=== PATIENT | male | born 1945 | race Caucasian/White ===

== ENCOUNTER 2017-05-02 11:18 | Inpatient (IN) ==
[2017-05-02] MEDS ORDERED: methylPREDNISolone SOD SUC 125 MG/2 ML VIAL IV STA (11:41)
[2017-05-02] MEDS ORDERED: AZITHROMYCIN INJ 500 MG in SODIUM CHLORIDE 0.9% 250 ML IV STA (11:41)
[2017-05-02] MEDS ORDERED: ONDANSETRON 4 MG/2 ML VIAL IV STA (11:41)
[2017-05-02] MEDS ORDERED: ALBUTEROL NEB SOLN 5 MG/ML 20 ML/BOTTLE RESP TX SCH (12:00)
[2017-05-02] MEDS ORDERED: AZITHROMYCIN 500 MG VIAL IV ONE (12:03)
[2017-05-02] MEDS ORDERED: ONDANSETRON 4 MG/2 ML VIAL ONE (12:03)
[2017-05-02] MEDS ORDERED: methylPREDNISolone SOD SUC 125 MG/2 ML VIAL ONE (12:03)
[2017-05-02 12:09] LABS: Basophils % 0.2 % (0.0-0.8); Eosinophils # 0.1 10*3/uL (0.0-0.87); Eosinophils % 2.1 % (0.00-10.9); Hematocrit 40.4 VOL% (42.0-52.0); Hemoglobin 13.3 GM/DL (14.0-18.0); Immature Granulocytes % 0.6 %; Immature Granulocytes Absolute 0.03 #; Lymphocytes # 1.1 10*3/uL (1.4-4.0); Lymphocytes % 20.8 % (21.2-54.2); Mean Corpuscular HGB Conc 32.9 GM/DL (32-36); Mean Corpuscular Hemoglobin 30 PG (27-34); Mean Platelet Volume 10.7 FL (9.6-12.0); Monocytes # 0.4 10*3/uL (0.11-0.8); Monocytes % 6.6 % (1.7-12.7); Neutrophils # 3.7 10*3/uL (1.4-7.4); Neutrophils % 69.7 % (38.7-73.9); Platelet Count 125 T/CUMM (130-400); Red Blood Count 4.44 MC/CUMM (3.8-5.5); Red Cell Distribution Width 13.4 % (9.3-17.3); White Blood Count 5.3 T/CUMM (4-12)
[2017-05-02 12:24] LABS: PT Patient Result 10.5 SECS; Partial Thromboplastin Time 28.6 SECS (0-40)
[2017-05-02 12:34] LABS: Alanine Aminotransferase 12 U/L (16-61); Albumin 3.1 G/DL (3.4-5.0); Alkaline Phosphatase 92 U/L (45-117); Aspartate Amino Transferase 14 U/L (0-37); Blood Urea Nitrogen 23 MG/DL (7-18); Calcium 8.7 MG/DL (8.5-10.1); Glucose 355 MG/DL (74-106); Osmolality,Calculated 287.1 MOS/KG (273-304); Potassium 4.9 MMOL/L (3.5-5.1); Sodium 135 MMOL/L (136-145); Total Protein 7.4 G/DL (6.4-8.3); Troponin I Only < 0.015 NG/ML (0.00-0.045)
[2017-05-02 13:29] LABS: Apearance,Urine CLEAR (Clear); Bilirubin,Urine Negative (Negative); Blood, Urine Negative (Negative); Glucose,Urine (UA) >=500 mg/dL (Negative); Ketones,Urine Negative (Negative); Mucus,Urine Occasional /LPF (Occasional); Nitrite,Urine Negative (Negative); Protein,Urine Negative; RBC,Urine <1 /HPF (0-4); Urine Color Yellow (Yellow); Urine Specific Gravity 1.018 (1.001-1.035); Urine Urobilinogen < 2.0 EU/DL (0.2-1.0); WBC,Urine 1 /HPF (0-6)
[2017-05-02] MEDS ORDERED: ONDANSETRON 4 MG/2 ML VIAL IV PRN (14:35)
[2017-05-02] MEDS ORDERED: GLUCAGON 1 MG VIAL IM PRN (14:35)
[2017-05-02] MEDS ORDERED: MORPHINE 2 MG/1 ML SYRINGE IV PRN (14:35)
[2017-05-02] MEDS ORDERED: ACETAMINOPHEN 325 MG TABLET PO PRN (14:35)
[2017-05-02] MEDS ORDERED: DEXTROSE 50% 25 GM/50 ML VIAL IV PRN (14:35)
[2017-05-02] MEDS ORDERED: ENOXAPARIN 40 MG/0.4 ML SYRINGE SUBCUT SCH (16:30)
[2017-05-02] MEDS: INSULIN LISPRO 100 UNIT/ML SUBCUT SCH ×2 (17:27→20:40)
[2017-05-02] MEDS: SODIUM CHLORIDE 0.9% 1,000 ML IV SCH (17:27)
[2017-05-02] MEDS: PIPERACILLIN/TAZOBACTAM 3,375 MG in SODIUM CHLORIDE 0.9% 100 ML IV SCH (18:11)
[2017-05-02] MEDS: ALBUTEROL/IPRATROPIUM 3 ML NEB RESP TX SCH (19:03)
[2017-05-02] MEDS: guaiFENesin/DM ER 600-30 MG TABLET PO SCH (20:39)
[2017-05-02] MEDS ORDERED: BENAZEPRIL 40 MG TABLET PO SCH (21:00)
[2017-05-02] MEDS ORDERED: PRAVASTATIN 40 MG TABLET PO SCH (21:00)
[2017-05-02] MEDS ORDERED: amLODIPine 5 MG TABLET PO SCH (21:00)
[2017-05-03] MEDS ORDERED: MELATONIN 3 MG TABLET PO PRN (00:19)
[2017-05-03] MEDS: PIPERACILLIN/TAZOBACTAM 3,375 MG in SODIUM CHLORIDE 0.9% 100 ML IV SCH ×2 (00:43→09:39)
[2017-05-03] MEDS: ALBUTEROL/IPRATROPIUM 3 ML NEB RESP TX SCH ×2 (01:02→07:43)
[2017-05-03 05:39] LABS: Hematocrit 35.4 VOL% (42.0-52.0); Hemoglobin 11.5 GM/DL (14.0-18.0); Immature Granulocytes % 0.6 %; Immature Granulocytes Absolute 0.04 #; Lymphocytes % 14.7 % (21.2-54.2); Mean Corpuscular HGB Conc 32.5 GM/DL (32-36); Mean Corpuscular Hemoglobin 29 PG (27-34); Mean Corpuscular Volume 90.3 FL (87-102); Mean Platelet Volume 11.1 FL (9.6-12.0); Monocytes # 0.4 10*3/uL (0.11-0.8); Monocytes % 5.3 % (1.7-12.7); Neutrophils # 5.5 10*3/uL (1.4-7.4); Neutrophils % 79.4 % (38.7-73.9); Platelet Count 144 T/CUMM (130-400); Red Blood Count 3.92 MC/CUMM (3.8-5.5); Red Cell Distribution Width 13.2 % (9.3-17.3); White Blood Count 6.9 T/CUMM (4-12)
[2017-05-03 06:08] LABS: Calcium 8.1 MG/DL (8.5-10.1); Osmolality,Calculated 294.5 MOS/KG (273-304); Potassium 4.9 MMOL/L (3.5-5.1); Risk Ratio 2.68; VLDL CHOLESTEROL 18.4 MG/DL
[2017-05-03] MEDS ORDERED: GLIMEPIRIDE 4 MG TABLET PO SCH (08:00)
[2017-05-03] MEDS: SODIUM CHLORIDE 0.9% 1,000 ML IV SCH ×2 (08:18→09:39)
[2017-05-03] MEDS ORDERED: PANTOPRAZOLE 40 MG TABLET PO SCH (09:00)
[2017-05-03] MEDS ORDERED: MONTELUKAST 10 MG TABLET PO SCH (09:00)
[2017-05-03] MEDS ORDERED: LOSARTAN 50 MG TABLET PO SCH (09:00)
[2017-05-03] MEDS: guaiFENesin/DM ER 600-30 MG TABLET PO SCH (09:09)
[2017-05-03] MEDS: INSULIN LISPRO 100 UNIT/ML SUBCUT SCH (09:09)
[2017-05-03 09:47] VITALS: BP 153/67
== END 2017-05-03 11:30 | disposition home or self-care (01) | DRG 192 ==
LOC: N.ED 11:18 → N.EDINP 15:07 → N.4E 16:39
PROVIDERS: ADMIT Internal Medicine Infectious Disease; ATTEND Internal Medicine Infectious Disease

== ENCOUNTER 2018-04-19 11:39 | Inpatient (IN) ==
[2018-04-19] MEDS ORDERED: MORPHINE 4 MG/1 ML VIAL IV STA (13:14)
[2018-04-19] MEDS ORDERED: ONDANSETRON 4 MG/2 ML VIAL IV STA (13:14)
[2018-04-19] MEDS ORDERED: NITROGLYCERIN 2% OINT 1 INCH/GM PACK TOP STA (13:14)
[2018-04-19] MEDS ORDERED: ASPIRIN 325 MG TABLET PO STA (13:14)
[2018-04-19] MEDS ORDERED: ALUM/MAG/SIMETH/LIDO VISC 1:1 30 ML BOTTLE PO STA (13:14)
[2018-04-19] MEDS ORDERED: PANTOPRAZOLE 40 MG VIAL IV STA (13:14)
[2018-04-19 14:26] LABS: Basophils % 0.2 % (0.0-0.8); Eosinophils # 0.1 10*3/uL (0.0-0.87); Eosinophils % 0.8 % (0.00-10.9); Hematocrit 47.3 VOL% (42.0-52.0); Hemoglobin 15.6 GM/DL (14.0-18.0); Immature Granulocytes % 0.5 %; Immature Granulocytes Absolute 0.06 #; Lymphocytes # 1.6 10*3/uL (1.4-4.0); Lymphocytes % 14.5 % (21.2-54.2); Mean Corpuscular Hemoglobin 30 PG (27-34); Mean Corpuscular Volume 90.1 FL (87-102); Mean Platelet Volume 12.6 FL (9.6-12.0); Monocytes # 0.5 10*3/uL (0.11-0.8); Monocytes % 4.3 % (1.7-12.7); Neutrophils % 79.7 % (38.7-73.9); Platelet Count 160 T/CUMM (130-400); Red Blood Count 5.25 MC/CUMM (3.8-5.5); Red Cell Distribution Width 12.7 % (9.3-17.3); White Blood Count 11.3 T/CUMM (4-12)
[2018-04-19 14:33] LABS: INR 0.9; PT Patient Result 10.1 SECS
[2018-04-19 14:39] LABS: Bilirubin,Total 0.8 MG/DL (0.2-1.0); Calcium 11.5 MG/DL (8.5-10.1); Osmolality,Calculated 282.2 MOS/KG (273-304); Total Protein 8.1 G/DL (6.4-8.3)
[2018-04-19] MEDS ORDERED: ENOXAPARIN 100 MG/ML SYRINGE SUBCUT STA (14:58)
[2018-04-19] MEDS ORDERED: ACETAMINOPHEN 325 MG TABLET PO PRN (15:27)
[2018-04-19] MEDS ORDERED: MORPHINE 4 MG/1 ML VIAL IV PRN (15:27)
[2018-04-19] MEDS ORDERED: MAGNESIUM SULF RIDER 2 GM in PREMIX 1 EACH IV PRN ×2 (15:27→16:26)
[2018-04-19] MEDS ORDERED: BISACODYL 5 MG TABLET PO PRN (15:27)
[2018-04-19] MEDS ORDERED: ONDANSETRON 4 MG/2 ML VIAL IV PRN (15:27)
[2018-04-19] MEDS ORDERED: MAGNESIUM SULF RIDER 4 GM in PREMIX 1 EACH IV PRN (15:27)
[2018-04-19] MEDS ORDERED: POTASSIUM CHLORIDE RIDER 10 MEQ in PREMIX 1 EACH IV PRN (16:26)
[2018-04-19] MEDS: predniSONE 20 MG TABLET PO SCH ×2 (16:54→22:11)
[2018-04-19] MEDS: INSULIN REGULAR 100 UNIT/ML SUBCUT SCH ×2 (16:54→19:42)
[2018-04-19] MEDS: NITROGLYCERIN 2% OINT 1 INCH/GM PACK TOP SCH (18:29)
[2018-04-19] MEDS ORDERED: amLODIPine 5 MG TABLET PO SCH (21:00)
[2018-04-19] MEDS: FINASTERIDE 5 MG TABLET PO SCH (22:11)
[2018-04-19] MEDS: GABAPENTIN 600 MG TABLET PO SCH (22:11)
[2018-04-19] MEDS: ZALEPLON 5 MG CAPSULE PO PRN (22:11)
[2018-04-19] MEDS: TAMSULOSIN 0.4 MG CAPSULE PO SCH (22:11)
[2018-04-19] MEDS: SIMVASTATIN 20 MG TABLET PO SCH (22:12)
[2018-04-19] MEDS: CARVEDILOL 3.125 MG TABLET PO SCH (22:12)
[2018-04-19] MEDS: ASCORBIC ACID 500 MG TABLET PO SCH (22:12)
[2018-04-19] MEDS: GLIMEPIRIDE 4 MG TABLET PO SCH (22:13)
[2018-04-19] MEDS: FAMOTIDINE 20 MG/2 ML VIAL IV SCH (22:13)
[2018-04-19] MEDS: diphenhydrAMINE 50 MG/1 ML VIAL IV SCH (22:20)
[2018-04-20 02:47] LABS: Basophils % 0.1 % (0.0-0.8); Hematocrit 42.1 VOL% (42.0-52.0); Hemoglobin 13.8 GM/DL (14.0-18.0); Immature Granulocytes % 0.4 %; Immature Granulocytes Absolute 0.04 #; Lymphocytes # 0.9 10*3/uL (1.4-4.0); Lymphocytes % 8.8 % (21.2-54.2); Mean Corpuscular HGB Conc 32.8 GM/DL (32-36); Mean Corpuscular Hemoglobin 29 PG (27-34); Mean Corpuscular Volume 89.8 FL (87-102); Mean Platelet Volume 12.4 FL (9.6-12.0); Monocytes # 0.3 10*3/uL (0.11-0.8); Monocytes % 2.7 % (1.7-12.7); Neutrophils # 8.7 10*3/uL (1.4-7.4); Platelet Count 141 T/CUMM (130-400); Red Blood Count 4.69 MC/CUMM (3.8-5.5); Red Cell Distribution Width 12.6 % (9.3-17.3); White Blood Count 9.9 T/CUMM (4-12)
[2018-04-20] MEDS: NITROGLYCERIN 2% OINT 1 INCH/GM PACK TOP SCH ×3 (02:58→12:03)
[2018-04-20 03:07] LABS: CKMB % 15.4 %
[2018-04-20 03:17] LABS: Calcium 9.2 MG/DL (8.5-10.1); Osmolality,Calculated 282.4 MOS/KG (273-304); Potassium 5.2 MMOL/L (3.5-5.1); Risk Ratio 2.33
[2018-04-20 03:21] LABS: Troponin I 8.51 NG/ML (0.00-0.045)
[2018-04-20] MEDS: SODIUM CHLORIDE 0.45% 1,000 ML IV SCH ×3 (04:00→22:36)
[2018-04-20] MEDS: predniSONE 20 MG TABLET PO SCH ×2 (05:21→10:34)
[2018-04-20] MEDS: diphenhydrAMINE 50 MG/1 ML VIAL IV SCH ×3 (05:22→22:39)
[2018-04-20] MEDS ORDERED: ENOXAPARIN 100 MG/ML SYRINGE SUBCUT SCH (06:00)
[2018-04-20] MEDS: INSULIN REGULAR 100 UNIT/ML SUBCUT SCH ×4 (08:38→22:07)
[2018-04-20] MEDS: FAMOTIDINE 20 MG/2 ML VIAL IV SCH ×2 (08:38→22:38)
[2018-04-20] MEDS ORDERED: PANTOPRAZOLE 40 MG TABLET PO SCH (09:00)
[2018-04-20 09:21] LABS: CKMB % 14.6 %
[2018-04-20 09:25] LABS: Troponin I 5.59 NG/ML (0.00-0.045)
[2018-04-20] MEDS ORDERED: DIAZEPAM 5 MG TABLET PO ONE (11:00)
[2018-04-20 11:41] LABS: CKMB % 14.5 %
[2018-04-20 11:44] LABS: Troponin I 5.26 NG/ML (0.00-0.045)
[2018-04-20] MEDS: GLIMEPIRIDE 4 MG TABLET PO SCH ×2 (12:02→22:37)
[2018-04-20] MEDS: CARVEDILOL 3.125 MG TABLET PO SCH ×2 (12:02→22:39)
[2018-04-20] MEDS: ASPIRIN EC 81 MG TABLET PO SCH (12:03)
[2018-04-20] MEDS: GABAPENTIN 600 MG TABLET PO SCH ×2 (12:03→22:37)
[2018-04-20] MEDS: MONTELUKAST 10 MG TABLET PO SCH (12:03)
[2018-04-20] MEDS ORDERED: HEPARIN/NACL 0.9% 2 UNITS/ML 1,000 ML IV ONE (13:04)
[2018-04-20] MEDS ORDERED: LIDOCAINE 1% 20 ML VIAL ONE (13:17)
[2018-04-20] MEDS ORDERED: fentaNYL 100 MCG/2 ML VIAL ONE (13:18)
[2018-04-20] MEDS ORDERED: MIDAZOLAM 2 MG/2 ML VIAL ONE (13:18)
[2018-04-20] MEDS ORDERED: BIVALIRUDIN 250 MG VIAL IV ONE (13:48)
[2018-04-20] MEDS ORDERED: NITROPRUSSIDE 50 MG/2 ML VIAL ONE (14:12)
[2018-04-20] MEDS ORDERED: NITROGLYCERIN DRIP 50 MG/250 ML BOTTLE IV ONE (14:21)
[2018-04-20] MEDS ORDERED: TICAGRELOR 90 MG TABLET ONE (14:34)
[2018-04-20] MEDS ORDERED: GLUCAGON 1 MG VIAL IM PRN (16:56)
[2018-04-20] MEDS ORDERED: DEXTROSE 50% 25 GM/50 ML SYRINGE IV PRN (16:56)
[2018-04-20] MEDS: ZALEPLON 5 MG CAPSULE PO PRN (22:37)
[2018-04-20] MEDS: FINASTERIDE 5 MG TABLET PO SCH (22:37)
[2018-04-20] MEDS: TICAGRELOR 90 MG TABLET PO SCH (22:38)
[2018-04-20] MEDS: TAMSULOSIN 0.4 MG CAPSULE PO SCH (22:38)
[2018-04-20] MEDS: SIMVASTATIN 20 MG TABLET PO SCH (22:38)
[2018-04-20] MEDS: ASCORBIC ACID 500 MG TABLET PO SCH (22:41)
[2018-04-21 04:33] LABS: Basophils % 0.1 % (0.0-0.8); Eosinophils % 0.1 % (0.00-10.9); Hematocrit 38.4 VOL% (42.0-52.0); Hemoglobin 12.8 GM/DL (14.0-18.0); Immature Granulocytes % 0.6 %; Immature Granulocytes Absolute 0.09 #; Lymphocytes # 1.1 10*3/uL (1.4-4.0); Lymphocytes % 7.5 % (21.2-54.2); Mean Corpuscular HGB Conc 33.3 GM/DL (32-36); Mean Corpuscular Hemoglobin 30 PG (27-34); Mean Corpuscular Volume 89.1 FL (87-102); Mean Platelet Volume 11.7 FL (9.6-12.0); Monocytes # 1.1 10*3/uL (0.11-0.8); Monocytes % 7.4 % (1.7-12.7); Neutrophils % 84.3 % (38.7-73.9); Platelet Count 128 T/CUMM (130-400); Red Blood Count 4.31 MC/CUMM (3.8-5.5); Red Cell Distribution Width 12.7 % (9.3-17.3); White Blood Count 14.2 T/CUMM (4-12)
[2018-04-21 04:48] LABS: Calcium 8.5 MG/DL (8.5-10.1); Osmolality,Calculated 297.8 MOS/KG (273-304); Potassium 4.4 MMOL/L (3.5-5.1)
[2018-04-21] MEDS: SODIUM CHLORIDE 0.45% 1,000 ML IV SCH ×3 (05:04→12:02)
[2018-04-21] MEDS: TICAGRELOR 90 MG TABLET PO SCH (08:40)
[2018-04-21] MEDS: INSULIN REGULAR 100 UNIT/ML SUBCUT SCH ×3 (08:40→16:18)
[2018-04-21] MEDS: GABAPENTIN 600 MG TABLET PO SCH (08:40)
[2018-04-21] MEDS: ASPIRIN EC 81 MG TABLET PO SCH (08:40)
[2018-04-21] MEDS: MONTELUKAST 10 MG TABLET PO SCH (08:40)
[2018-04-21] MEDS: GLIMEPIRIDE 4 MG TABLET PO SCH (08:40)
[2018-04-21] MEDS: CARVEDILOL 3.125 MG TABLET PO SCH (08:40)
[2018-04-21] MEDS: FAMOTIDINE 20 MG/2 ML VIAL IV SCH (08:41)
[2018-04-21] MEDS ORDERED: CYANOCOBALAMIN 100 MCG TABLET PO SCH (09:00)
[2018-04-21 12:36] VITALS: BP 141/67
[2018-04-21] MEDS ORDERED: NITROGLYCERIN SL 0.4 MG TABLET SL PRN (13:07)
[2018-04-21] MEDS ORDERED: PANTOPRAZOLE 40 MG TABLET PO SCH (21:00)
[2018-04-21] MEDS ORDERED: ROSUVASTATIN 20 MG TABLET PO SCH (21:00)
== END 2018-04-21 16:32 | disposition home or self-care (01) | DRG 247 ==
LOC: N.EDINP 11:39 → N.ED 11:39 → N.TELES 16:01
PROVIDERS: ADMIT Internal Medicine Cardiovascular Disease; ATTEND Internal Medicine Cardiovascular Disease
PROC: CLCCHCL (ICD-10-PCS; 2018-04-20 12:15)

== ENCOUNTER 2019-03-28 11:40 | Inpatient (IN) ==
[2019-03-28] MEDS ORDERED: FUROSEMIDE 40 MG/4 ML VIAL IV STA (12:48)
[2019-03-28 13:02] LABS: Basophils % 0.4 % (0.0-0.8); Eosinophils # 0.1 10*3/uL (0.0-0.87); Eosinophils % 1.1 % (0.00-10.9); Hematocrit 40.8 VOL% (42.0-52.0); Hemoglobin 12.4 GM/DL (14.0-18.0); Immature Granulocytes % 0.8 %; Immature Granulocytes Absolute 0.08 #; Lymphocytes # 1.4 10*3/uL (1.4-4.0); Mean Corpuscular HGB Conc 30.4 GM/DL (32-36); Mean Corpuscular Volume 90.7 FL (87-102); Mean Platelet Volume 10.5 FL (9.6-12.0); Monocytes % 6.9 % (1.7-12.7); Neutrophils % 76.8 % (38.7-73.9); Platelet Count 225 T/CUMM (130-400); Red Cell Distribution Width 14.6 % (9.3-17.3)
[2019-03-28 13:33] LABS: Albumin 2.7 G/DL (3.4-5.0); Calcium 8.4 MG/DL (8.5-10.1); Total Protein 6.9 G/DL (6.4-8.3)
[2019-03-28 14:12] LABS: Apearance,Urine CLEAR (Clear); Bacteria,Urine Occasional /HPF (Few); Bilirubin,Urine Negative (Negative); Blood, Urine Negative (Negative); Glucose,Urine (UA) Negative (Negative); Hyaline Casts,Urine 12 /LPF (0-3); Ketones,Urine Negative (Negative); Mucus,Urine Occasional /LPF (Occasional); Nitrite,Urine Negative (Negative); Protein,Urine Negative; RBC,Urine 1 /HPF (0-4); Squamous Epithelial Cell,Urine Occasional /HPF (0-10); Urine Color Yellow (Yellow); Urine Specific Gravity 1.018 (1.001-1.035); Urine Urobilinogen < 2.0 EU/DL (0.2-1.0); WBC,Urine 20 /HPF (0-6)
[2019-03-28] MEDS ORDERED: ALBUTEROL 2.5 MG/3 ML NEB RESP TX STA (15:41)
[2019-03-28] MEDS ORDERED: LEVOFLOXACIN INJ 750 MG in PREMIX 1 EACH IV STA (16:04)
[2019-03-28] MEDS ORDERED: ACETAMINOPHEN 325 MG TABLET PO PRN (16:12)
[2019-03-28] MEDS ORDERED: DEXTROSE 10% 25 GM/250 ML BAG IV PRN ×2 (16:12)
[2019-03-28] MEDS ORDERED: GLUCAGON 1 MG VIAL IM PRN (16:12)
[2019-03-28] MEDS ORDERED: ALBUTEROL 2.5 MG/3 ML NEB RESP TX PRN (17:00)
[2019-03-28] MEDS: INSULIN REGULAR 100 UNIT/ML SUBCUT SCH ×2 (17:11→22:01)
[2019-03-28] MEDS ORDERED: BUDESONIDE 0.25 MG/2 ML NEB RESP TX PRN (17:14)
[2019-03-28] MEDS: ALBUTEROL/IPRATROPIUM 3 ML NEB RESP TX SCH (19:25)
[2019-03-28] MEDS: ISOSORBIDE MONONITRATE 30 MG TABLET PO SCH (20:56)
[2019-03-28] MEDS: MELATONIN 3 MG TABLET PO SCH (20:56)
[2019-03-28] MEDS: TAMSULOSIN 0.4 MG CAPSULE PO SCH (20:56)
[2019-03-28] MEDS: FINASTERIDE 5 MG TABLET PO SCH (20:56)
[2019-03-28] MEDS: ROSUVASTATIN 20 MG TABLET PO SCH (20:56)
[2019-03-28] MEDS: MONTELUKAST 10 MG TABLET PO SCH (20:56)
[2019-03-28] MEDS: GABAPENTIN 600 MG TABLET PO SCH (20:56)
[2019-03-28] MEDS: carvediloL 3.125 MG TABLET PO SCH (20:56)
[2019-03-28] MEDS: ENOXAPARIN 40 MG/0.4 ML SYRINGE SUBCUT SCH (20:57)
[2019-03-29] MEDS: ALBUTEROL/IPRATROPIUM 3 ML NEB RESP TX SCH ×4 (00:15→20:30)
[2019-03-29 05:41] LABS: Basophils % 0.4 % (0.0-0.8); Eosinophils # 0.2 10*3/uL (0.0-0.87); Eosinophils % 2.7 % (0.00-10.9); Hematocrit 36.1 VOL% (42.0-52.0); Hemoglobin 10.9 GM/DL (14.0-18.0); Immature Granulocytes % 0.4 %; Immature Granulocytes Absolute 0.03 #; Lymphocytes # 1.5 10*3/uL (1.4-4.0); Mean Corpuscular HGB Conc 30.2 GM/DL (32-36); Mean Corpuscular Volume 91.2 FL (87-102); Mean Platelet Volume 10.4 FL (9.6-12.0); Monocytes % 8.8 % (1.7-12.7); Neutrophils % 66.7 % (38.7-73.9); Platelet Count 202 T/CUMM (130-400); Red Blood Count 3.96 MC/CUMM (3.8-5.5); Red Cell Distribution Width 14.5 % (9.3-17.3); White Blood Count 7.3 T/CUMM (4-12)
[2019-03-29 06:18] LABS: Albumin 2.2 G/DL (3.4-5.0); Calcium 8.4 MG/DL (8.5-10.1); Osmolality,Calculated 284.7 MOS/KG (273-304); Total Protein 6.5 G/DL (6.4-8.3)
[2019-03-29] MEDS ORDERED: predniSONE 20 MG TABLET PO SCH (09:00)
[2019-03-29] MEDS ORDERED: predniSONE 5 MG TABLET PO SCH (09:00)
[2019-03-29] MEDS ORDERED: OLMESARTAN 5 MG TABLET PO SCH (09:00)
[2019-03-29] MEDS: GABAPENTIN 600 MG TABLET PO SCH ×2 (09:19→20:33)
[2019-03-29] MEDS: ISOSORBIDE MONONITRATE 30 MG TABLET PO SCH ×2 (09:19→20:34)
[2019-03-29] MEDS: FUROSEMIDE 40 MG TABLET PO SCH (09:21)
[2019-03-29] MEDS: THEOPHYLLINE ER (24 HR) 200 MG CAPSULE PO SCH (09:21)
[2019-03-29] MEDS: ASPIRIN EC 81 MG TABLET PO SCH (09:23)
[2019-03-29] MEDS: carvediloL 3.125 MG TABLET PO SCH ×2 (09:23→20:34)
[2019-03-29] MEDS: CLOPIDOGREL 75 MG TABLET PO SCH (09:23)
[2019-03-29] MEDS: amLODIPine 2.5 MG TABLET PO SCH (09:23)
[2019-03-29] MEDS: PANTOPRAZOLE 40 MG TABLET PO SCH (09:23)
[2019-03-29] MEDS: ASCORBIC ACID 500 MG TABLET PO SCH (09:23)
[2019-03-29] MEDS: CYANOCOBALAMIN 500 MCG TABLET PO SCH (09:23)
[2019-03-29] MEDS: MONTELUKAST 10 MG TABLET PO SCH ×2 (09:23→20:33)
[2019-03-29] MEDS: INSULIN REGULAR 100 UNIT/ML SUBCUT SCH ×4 (09:24→20:38)
[2019-03-29] MEDS ORDERED: ALBUTEROL/IPRATROPIUM 3 ML NEB RESP TX PRN (09:31)
[2019-03-29] MEDS: DORNASE ALFA 2.5 MG/2.5 ML VIAL RESP TX SCH ×2 (11:38→20:36)
[2019-03-29] MEDS: methylPREDNISolone SOD SUC 125 MG/2 ML VIAL IV SCH ×2 (12:20→22:11)
[2019-03-29] MEDS: MEROPENEM 500 MG in SODIUM CHLORIDE 0.9% 100 ML IV SCH ×3 (12:24→21:50)
[2019-03-29] MEDS ORDERED: LEVOFLOXACIN INJ 750 MG in PREMIX 1 EACH IV SCH (16:30)
[2019-03-29] MEDS ORDERED: LEVOFLOXACIN INJ 500 MG in PREMIX 1 EACH IV SCH (16:30)
[2019-03-29] MEDS: MELATONIN 3 MG TABLET PO SCH (20:33)
[2019-03-29] MEDS: FINASTERIDE 5 MG TABLET PO SCH (20:34)
[2019-03-29] MEDS: ROSUVASTATIN 20 MG TABLET PO SCH (20:37)
[2019-03-29] MEDS: TAMSULOSIN 0.4 MG CAPSULE PO SCH (20:37)
[2019-03-29] MEDS: ENOXAPARIN 40 MG/0.4 ML SYRINGE SUBCUT SCH (20:37)
[2019-03-30] MEDS: ALBUTEROL/IPRATROPIUM 3 ML NEB RESP TX SCH ×4 (00:13→19:01)
[2019-03-30] MEDS: MEROPENEM 500 MG in SODIUM CHLORIDE 0.9% 100 ML IV SCH ×4 (05:05→21:28)
[2019-03-30 05:39] LABS: Hematocrit 36.1 VOL% (42.0-52.0); Immature Granulocytes % 0.5 %; Immature Granulocytes Absolute 0.03 #; Lymphocytes # 0.7 10*3/uL (1.4-4.0); Lymphocytes % 10.2 % (21.2-54.2); Mean Corpuscular HGB Conc 30.5 GM/DL (32-36); Mean Corpuscular Volume 89.6 FL (87-102); Mean Platelet Volume 10.4 FL (9.6-12.0); Monocytes % 2.2 % (1.7-12.7); Neutrophils % 87.1 % (38.7-73.9); Platelet Count 194 T/CUMM (130-400); Red Blood Count 4.03 MC/CUMM (3.8-5.5); Red Cell Distribution Width 14.1 % (9.3-17.3); White Blood Count 6.4 T/CUMM (4-12)
[2019-03-30 05:54] LABS: Calcium 8.1 MG/DL (8.5-10.1); Osmolality,Calculated 293.1 MOS/KG (273-304)
[2019-03-30] MEDS: DORNASE ALFA 2.5 MG/2.5 ML VIAL RESP TX SCH ×2 (07:36→19:08)
[2019-03-30] MEDS: PANTOPRAZOLE 40 MG TABLET PO SCH (11:01)
[2019-03-30] MEDS: ASCORBIC ACID 500 MG TABLET PO SCH (11:01)
[2019-03-30] MEDS: FUROSEMIDE 40 MG TABLET PO SCH (11:01)
[2019-03-30] MEDS: GABAPENTIN 600 MG TABLET PO SCH ×2 (11:03→21:26)
[2019-03-30] MEDS: ASPIRIN EC 81 MG TABLET PO SCH (11:03)
[2019-03-30] MEDS: ISOSORBIDE MONONITRATE 30 MG TABLET PO SCH (11:03)
[2019-03-30] MEDS: amLODIPine 2.5 MG TABLET PO SCH (11:04)
[2019-03-30] MEDS: CYANOCOBALAMIN 500 MCG TABLET PO SCH (11:04)
[2019-03-30] MEDS: MONTELUKAST 10 MG TABLET PO SCH ×2 (11:04→21:27)
[2019-03-30] MEDS: CLOPIDOGREL 75 MG TABLET PO SCH (11:04)
[2019-03-30] MEDS: INSULIN REGULAR 100 UNIT/ML SUBCUT SCH ×5 (11:04→21:42)
[2019-03-30] MEDS: methylPREDNISolone SOD SUC 125 MG/2 ML VIAL IV SCH ×2 (11:04→21:25)
[2019-03-30] MEDS: THEOPHYLLINE ER (24 HR) 200 MG CAPSULE PO SCH (11:08)
[2019-03-30] MEDS: carvediloL 3.125 MG TABLET PO SCH (11:10)
[2019-03-30] MEDS ORDERED: GLUCAGON 1 MG VIAL IM PRN (11:51)
[2019-03-30] MEDS ORDERED: DEXTROSE 10% 25 GM/250 ML BAG IV PRN (11:51)
[2019-03-30] MEDS ORDERED: MAGNESIUM SULF RIDER 2 GM in PREMIX 1 EACH IV PRN (15:57)
[2019-03-30] MEDS ORDERED: POTASSIUM CHLORIDE RIDER 10 MEQ in PREMIX 1 EACH IV PRN (15:57)
[2019-03-30] MEDS ORDERED: INSULIN REGULAR 100 UNIT/ML SUBCUT ONE (17:52)
[2019-03-30] MEDS: MELATONIN 3 MG TABLET PO SCH (21:26)
[2019-03-30] MEDS: ROSUVASTATIN 20 MG TABLET PO SCH (21:26)
[2019-03-30] MEDS: diphenhydrAMINE CAP 25 MG CAPSULE PO SCH (21:27)
[2019-03-30] MEDS: FINASTERIDE 5 MG TABLET PO SCH (21:28)
[2019-03-30] MEDS: TAMSULOSIN 0.4 MG CAPSULE PO SCH (21:28)
[2019-03-30] MEDS: SILDENAFIL 20 MG TABLET PO SCH (21:42)
[2019-03-30] MEDS: ENOXAPARIN 40 MG/0.4 ML SYRINGE SUBCUT SCH (23:23)
[2019-03-31] MEDS: ALBUTEROL/IPRATROPIUM 3 ML NEB RESP TX SCH ×4 (00:32→19:33)
[2019-03-31] MEDS: MEROPENEM 500 MG in SODIUM CHLORIDE 0.9% 100 ML IV SCH ×3 (03:48→22:04)
[2019-03-31 06:39] LABS: Basophils % 0.2 % (0.0-0.8); Hematocrit 36.3 VOL% (42.0-52.0); Hemoglobin 11.3 GM/DL (14.0-18.0); Immature Granulocytes % 0.4 %; Immature Granulocytes Absolute 0.05 #; Lymphocytes # 0.8 10*3/uL (1.4-4.0); Lymphocytes % 6.7 % (21.2-54.2); Mean Corpuscular HGB Conc 31.1 GM/DL (32-36); Mean Platelet Volume 10.4 FL (9.6-12.0); Monocytes % 1.1 % (1.7-12.7); Neutrophils % 91.6 % (38.7-73.9); Platelet Count 205 T/CUMM (130-400); Red Blood Count 4.08 MC/CUMM (3.8-5.5); Red Cell Distribution Width 14.3 % (9.3-17.3); White Blood Count 12.3 T/CUMM (4-12)
[2019-03-31 07:02] LABS: Lymphocytes 3 % (20-55); Segmented Neutrophils 96 % (50-85); Total Cells Counted 100
[2019-03-31 07:03] LABS: Platelet Estimate Adequate
[2019-03-31 07:04] LABS: Hypochromasia 1+; Ovalocytes Slight
[2019-03-31 07:09] LABS: Calcium 8.5 MG/DL (8.5-10.1)
[2019-03-31] MEDS: DORNASE ALFA 2.5 MG/2.5 ML VIAL RESP TX SCH ×2 (07:11→19:33)
[2019-03-31] MEDS: SODIUM CHLORIDE 0.45% 1,000 ML IV SCH ×3 (07:24→20:30)
[2019-03-31] MEDS: diphenhydrAMINE CAP 25 MG CAPSULE PO SCH ×5 (07:26→22:26)
[2019-03-31] MEDS: FAMOTIDINE 20 MG/2 ML VIAL IV SCH ×3 (07:35→18:05)
[2019-03-31 08:11] LABS: INR 1.1; PT Patient Result 11.6 SECS (9.6-12.2)
[2019-03-31] MEDS: INSULIN REGULAR 100 UNIT/ML SUBCUT SCH ×7 (09:42→22:06)
[2019-03-31] MEDS: PANTOPRAZOLE 40 MG TABLET PO SCH (09:46)
[2019-03-31] MEDS: MONTELUKAST 10 MG TABLET PO SCH ×2 (09:46→22:02)
[2019-03-31] MEDS: amLODIPine 2.5 MG TABLET PO SCH (09:46)
[2019-03-31] MEDS: NEBIVOLOL 5 MG TABLET PO SCH (09:46)
[2019-03-31] MEDS: FUROSEMIDE 40 MG TABLET PO SCH (09:46)
[2019-03-31] MEDS: SILDENAFIL 20 MG TABLET PO SCH ×3 (09:46→22:01)
[2019-03-31] MEDS: GABAPENTIN 600 MG TABLET PO SCH ×2 (09:46→22:02)
[2019-03-31] MEDS: CLOPIDOGREL 75 MG TABLET PO SCH (09:46)
[2019-03-31] MEDS: ASPIRIN EC 81 MG TABLET PO SCH (09:46)
[2019-03-31] MEDS: ASCORBIC ACID 500 MG TABLET PO SCH (09:47)
[2019-03-31] MEDS: methylPREDNISolone SOD SUC 125 MG/2 ML VIAL IV SCH ×2 (09:47→22:00)
[2019-03-31] MEDS: CYANOCOBALAMIN 500 MCG TABLET PO SCH (09:47)
[2019-03-31] MEDS: THEOPHYLLINE ER (24 HR) 200 MG CAPSULE PO SCH (09:47)
[2019-03-31] MEDS ORDERED: DIAZEPAM 5 MG TABLET PO ONE (12:00)
[2019-03-31] MEDS ORDERED: INSULIN GLARGINE 100 UNIT/ML SUBCUT ONE (12:00)
[2019-03-31] MEDS ORDERED: diphenhydrAMINE CAP 25 MG CAPSULE PO ONE (12:00)
[2019-03-31] MEDS ORDERED: LIDOCAINE 1% 20 ML VIAL ONE (15:12)
[2019-03-31] MEDS ORDERED: HEPARIN/NACL 0.9% 2 UNITS/ML 1,000 ML IV ONE (15:12)
[2019-03-31] MEDS ORDERED: fentaNYL 100 MCG/2 ML VIAL ONE (15:38)
[2019-03-31] MEDS ORDERED: MIDAZOLAM 2 MG/2 ML VIAL ONE (15:38)
[2019-03-31] MEDS ORDERED: diphenhydrAMINE 50 MG/1 ML VIAL ONE (15:38)
[2019-03-31] MEDS ORDERED: ASPIRIN 325 MG TABLET ONE (15:38)
[2019-03-31] MEDS ORDERED: CLOPIDOGREL 75 MG TABLET ONE (15:39)
[2019-03-31] MEDS ORDERED: ONDANSETRON 4 MG/2 ML VIAL IV PRN (17:01)
[2019-03-31] MEDS ORDERED: ZALEPLON 5 MG CAPSULE PO PRN (17:01)
[2019-03-31] MEDS ORDERED: INSULIN GLARGINE 100 UNIT/ML SUBCUT SCH (21:00)
[2019-03-31] MEDS: TAMSULOSIN 0.4 MG CAPSULE PO SCH (22:01)
[2019-03-31] MEDS: ROSUVASTATIN 20 MG TABLET PO SCH (22:01)
[2019-03-31] MEDS: ENOXAPARIN 40 MG/0.4 ML SYRINGE SUBCUT SCH (22:02)
[2019-03-31] MEDS: FINASTERIDE 5 MG TABLET PO SCH (22:02)
[2019-03-31] MEDS: MELATONIN 3 MG TABLET PO SCH (22:22)
[2019-04-01] MEDS: ALBUTEROL/IPRATROPIUM 3 ML NEB RESP TX SCH ×3 (00:32→13:09)
[2019-04-01] MEDS: FAMOTIDINE 20 MG/2 ML VIAL IV SCH (03:29)
[2019-04-01] MEDS: MEROPENEM 500 MG in SODIUM CHLORIDE 0.9% 100 ML IV SCH ×2 (03:29→12:19)
[2019-04-01 05:13] LABS: INR 1.1; PT Patient Result 11.8 SECS (9.6-12.2); Partial Thromboplastin Time 28.7 SECS (20.8-36.0)
[2019-04-01 05:32] LABS: Calcium 8.3 MG/DL (8.5-10.1); Osmolality,Calculated 300.7 MOS/KG (273-304)
[2019-04-01 05:33] LABS: Basophils % 0.1 % (0.0-0.8); Hematocrit 40.5 VOL% (42.0-52.0); Hemoglobin 12.3 GM/DL (14.0-18.0); Immature Granulocytes % 0.8 %; Immature Granulocytes Absolute 0.09 #; Lymphocytes # 0.6 10*3/uL (1.4-4.0); Lymphocytes % 5.2 % (21.2-54.2); Mean Corpuscular HGB Conc 30.4 GM/DL (32-36); Mean Corpuscular Volume 91.2 FL (87-102); Mean Platelet Volume 10.4 FL (9.6-12.0); Monocytes % 1.5 % (1.7-12.7); Neutrophils % 92.4 % (38.7-73.9); Platelet Count 205 T/CUMM (130-400); Red Blood Count 4.44 MC/CUMM (3.8-5.5); Red Cell Distribution Width 14.4 % (9.3-17.3); White Blood Count 10.8 T/CUMM (4-12)
[2019-04-01 05:50] LABS: Hypochromasia 1+; Lymphocytes 5 % (20-55); Segmented Neutrophils 94 % (50-85); Total Cells Counted 100
[2019-04-01 05:51] LABS: Microcytosis Slight; Platelet Estimate Normal
[2019-04-01] MEDS: DORNASE ALFA 2.5 MG/2.5 ML VIAL RESP TX SCH (07:06)
[2019-04-01] MEDS: diphenhydrAMINE CAP 25 MG CAPSULE PO SCH ×2 (07:19→10:45)
[2019-04-01] MEDS ORDERED: diphenhydrAMINE 50 MG/1 ML VIAL IM ONE (08:00)
[2019-04-01] MEDS ORDERED: LIDOCAINE 2% VISCOUS 100 ML BOTTLE SWISH/SPIT ONE (08:30)
[2019-04-01] MEDS ORDERED: LIDOCAINE 2% 20 ML VIAL RESP TX ONE (08:30)
[2019-04-01] MEDS ORDERED: LIDOCAINE 1% 20 ML VIAL MISC INJ ONE (08:30)
[2019-04-01] MEDS: INSULIN REGULAR 100 UNIT/ML SUBCUT SCH ×4 (08:35→12:04)
[2019-04-01] MEDS ORDERED: MIDAZOLAM 2 MG/2 ML VIAL IV ONE (09:00)
[2019-04-01 11:58] VITALS: BP 151/66
[2019-04-01] MEDS: THEOPHYLLINE ER (24 HR) 200 MG CAPSULE PO SCH (12:05)
[2019-04-01] MEDS: ASPIRIN EC 81 MG TABLET PO SCH (12:05)
[2019-04-01] MEDS: GABAPENTIN 600 MG TABLET PO SCH (12:05)
[2019-04-01] MEDS: MONTELUKAST 10 MG TABLET PO SCH (12:05)
[2019-04-01] MEDS: ASCORBIC ACID 500 MG TABLET PO SCH (12:06)
[2019-04-01] MEDS: CLOPIDOGREL 75 MG TABLET PO SCH (12:06)
[2019-04-01] MEDS: CYANOCOBALAMIN 500 MCG TABLET PO SCH (12:07)
[2019-04-01] MEDS: FUROSEMIDE 40 MG TABLET PO SCH (12:07)
[2019-04-01] MEDS: NEBIVOLOL 5 MG TABLET PO SCH (12:08)
[2019-04-01] MEDS: SILDENAFIL 20 MG TABLET PO SCH (12:09)
[2019-04-01] MEDS: PANTOPRAZOLE 40 MG TABLET PO SCH (12:09)
[2019-04-01] MEDS: amLODIPine 2.5 MG TABLET PO SCH (12:12)
[2019-04-01] MEDS: methylPREDNISolone SOD SUC 125 MG/2 ML VIAL IV SCH (12:20)
== END 2019-04-01 13:55 | disposition home or self-care (01) | DRG 190 ==
LOC: N.ED 11:40 → N.EDINP 16:12 → SUATTDRO 16:12 → N.EDINP 17:26 → N.2E 17:39
PROVIDERS: ADMIT Family Medicine; ATTEND Internal Medicine